=== PATIENT | female | born 1955 | race Caucasian/White ===

== ENCOUNTER 2024-07-25 10:17 | Emergency (ER) | payer MEDICARE, MEDICAID, SELFPAY ==
[2024-07-25 10:18] VITALS: BMI 42.9
[2024-07-25 11:04] VITALS: BP 163/75; PULSE 79; RESP 19; TEMP 36.8; O2SAT 97
--- NOTE | 2024-07-25 11:12 | XR_ITS ---
Examination: Ribs, right, with PA chest, 6 views Technique: Chest PA, RIBS AP, RPO, LPO, AP coned lower ribs 5 views Exam date and time: July 25, 2024 1121 hrs. Indications: Injury to the right chest 3 days ago with right rib pain Findings: Mild to moderate enlargement cardiac contour Large retrocardiac gastric hernia No pneumothorax Opacity right base, consider pneumonia, pulmonary contusion Acute fractures right third, fourth, fifth, sixth ribs anterolaterally Mild blunting of the right lateral costophrenic angle Impression: Acute fractures right third, fourth, fifth, sixth ribs without major offset Opacity right base most consistent with pulmonary contusion No pneumothorax Suspicious for small right hemothorax
[2024-07-25] MEDS: traMADol HCL 50 MG TABLET PO ×2 (11:30→15:54)
[2024-07-25 15:23] VITALS: BP 144/87; PULSE 85; RESP 17; TEMP 36.7; O2SAT 99
--- NOTE | 2024-07-25 15:34 | XR_ITS ---
Examination: CT chest, without intravenous contrast. Sagittal and coronal 2-D reconstructions. Exam date and time: July 25, 2024 1605 hrs. Indications: Right-sided abdominal pain beginning 3 days ago after injury to the right chest CTDI:vol (mGy) 26.1 DLP: (mGycm) 918 Technique: Multiple 3.0 mm axial sections of the chest to been obtained. Bone and lung density settings are obtained. Sagittal and coronal 2-D reconstructions have been obtained. Low dose protocols were performed. One or more of the following dose reduction techniques were used; automated exposure control, adjustment of the mA and/or KV according to patient size, use of iterative reconstruction technique. Findings: Thoracic aorta pulmonary arteries intact Mild calcification left anterior descending coronary artery Trace pericardial thickening Large retrocardiac gastric hernia No hemopericardium Probable parenchymal scarring in the right upper lobe No pneumothorax Extensive nodular parenchymal disease in the right middle lobe which may be residual from prior granulomatous disease The manubrium and the body the sternum are intact No thoracic vertebral body compression fracture Acute fractures right third fourth fifth sixth seventh ribs lateral anteriorly Hemorrhagic contusion right lateral thoracic wall, for instance axial image 58 although no organized hematoma No visualized liver or splenic laceration No free blood in the abdomen Abdominal aorta intact Absent gallbladder Impression: Flail chest with acute fractures right third through seventh ribs Thoracic aorta pulmonary arteries intact No pneumothorax or hemothorax Extensive nodular disease in the right mid and lower lung zone, favor sequelae of prior granulomatous disease, but clinical correlation advised
--- NOTE | 2024-07-25 15:40 | EDNOTE_ITS ---
Emergency Room Addendum Addendum Narrative: I was asked by ALYSIA Mariaelena to take a look at this patient who is got obvious right thoracic pain at least 3 rib fractures visualized on the right side in the area of pulmonary contusion and questionable small pneumo. Patient is having a lot of pain she wants to go home. She states she does not tolerate laying flat and she has a creatinine of 1.5 on the last 1 here so we elected to do a noncontrast CT and give her more pain medicine patient understands the risks and benefits and still wants to go home but Mariaelena is still talking whether hopefully get her to comply with the CT. She has an O2 sat of 90% is tolerating things quite well despite all this. Patient and nurse practitioner will discuss further workup at this time. CTA of the chest was done and the impression by the radiologist is below but 1 correction should be made this is not a flail chest as there is not a segment of unstable chest wall there is multiple rib fractures seen in a linear fashion making the patient at risk for hemopneumothorax and/or pulmonary contusions but fortunately the patient does not have evidence of those as the patient's O2 sat is normal she is taking adequate breaths although it is very painful but there is evidence of pre- existing granulomatous disease that is clinically insignificant at this time. Patient was given precautions after discussion with the [employer]ANT [employer]OTE[employer]ARD to return if shortness of breath fever getting worse in any way. She knows the splint her chest and using incentive spirometer and follow-up with her doctor in 2 to 3 days. Impression: Flail chest with acute fractures right third through seventh ribs Thoracic aorta pulmonary arteries intact No pneumothorax or hemothorax Extensive nodular disease in the right mid and lower lung zone, favor sequelae of prior granulomatous disease, but clinical correlation advised
[2024-07-25 15:52] LABS: Basophils # (Auto) 0.1 Thou/mm3 (0.0-0.2); Basophils % (Auto) 0 % (0-2.5); Eosinophils # (Auto) 0.3 Thou/mm3 (0.0-0.5); Eosinophils % (Auto) 3 % (0-10); Hemoglobin 9.7 g/dL (12.0-16.0); Immature Granulocytes % (Auto) 0 % (0-0); Immature Granulocytes Auto 0.04 Thou/mm3 (0.00-0.00); Lymphocytes # (Auto) 4.1 Thou/mm3 (1.0-4.8); Lymphocytes % (Auto) 31 % (10-50); Mean Corpuscular HGB Conc 30.3 g/dl (31.0-37.0); Mean Corpuscular Hemoglobin 24.7 pg (25.0-35.0); Mean Corpuscular Volume 82 fL (80-100); Monocytes # (Auto) 0.8 Thou/mm3 (0.0-0.8); Monocytes % (Auto) 6 % (0-12); Neutrophils % (Auto) 60 % (37-80); Nucleated Red Blood Cell % 0 /100 WBC (0); Platelet Count 486 Thou/mm3 (140-440); RDW Standard Deviation 44.7 fL (36.4-46.3); Red Blood Count 3.92 Miln/mm3 (4.00-5.20); White Blood Count 13.2 Thou/mm3 (3.6-11.0)
[2024-07-25 16:22] LABS: Alanine Aminotransferase 9 U/L (10-49); Albumin, Serum 4.5 gm/dL (3.4-4.8); Albumin/Globulin Ratio 1.4 (1.2-2.2); Alkaline Phosphatase 91 U/L (46-116); Anion Gap 9 (7-16); Aspartate Amino Transferase < 10 U/L (0-34); BUN/Creatinine Ratio 16 Ratio (12-20); Bilirubin,Total 0.6 mg/dL (0.3-1.2); Blood Urea Nitrogen 18 mg/dL (9-23); Calcium 9.3 mg/dL (8.3-10.6); Calcium (Corrected) 9.3 mg/dL (8.5-10.1); Carbon Dioxide 22.8 mMol/L (20.0-31.0); Chloride 110 mMol/L (98-107); Creatinine (Component) 1.1 mg/dL (0.6-1.3); Estimated Creatinine Clearance 62.1 mL/min (>60); Globulin 3.2 gm/dL (2.3-3.5); Glucose 90 mg/dL (74-106); Osmolality,Calculated 285 (275-295); Potassium 3.5 mMol/L (3.4-5.1); Sodium 142 mMol/L (136-145); Total Protein 7.7 gm/dL (5.7-8.2); eGFR 55 See Note
--- NOTE | 2024-08-01 08:31 | EDNOTE_ITS ---
ED Back Injury Pain RME/HPI General Chief Complaint: Fall Stated Complaint: RIGHT SIDE OF BODY PAIN S/P FALL IN SHOWER Time Seen by Provider: 07/25/24 10:54 Source: patient Arrival date/time: 07/25/24 10:17 This is a 68-year-old female who presented to the emergency department after a fall in her bathtub 4 days prior to ED arrival. Patient reports she was in her bathtub shower fixing her shower curtain when she accidentally slipped landing on her right side. States that for the last 3 days she has been having pain in her right ribs. More with deep inspiration. Patient denies chest pain, dyspnea. She denied any head injury no neck pain no abdominal pain. Mode of arrival: ambulatory Related Data Home Medications ?Medication ?Instructions ?Recorded ?Confirmed Levothyroxine * (SYNTHROID *) 100 mg PO QDAY ##30 03/01 01/11 furosemide 20 mg tablet ##30 03/17/14 gabapentin 400 mg capsule ##30 03/17/14 hydrochlorothiazide 25 mg tablet ##30 03/17/14 omeprazole 40 mg capsule,delayed ##30 03/17/14 release atorvastatin 10 mg tablet (Lipitor) 10 mg PO HS #0 tab s 12/05/16 Previous Rx's ?Medication ?Instructions ?Recorded levofloxacin 750 mg tablet 750 mg PO QDAY #5 tabs 01/16 (Levaquin) ibuprofen 600 mg tablet 600 mg PO Q8H PRN fever or p ain 07/25/24 #30 tabs tramadol 50 mg tablet 50 mg PO Q8H PRN pain #14 ta bs 07/25/24 Allergies Allergy/AdvReac Type Severity Reaction Status Date / Time codeine Allergy Mild Vomiting Verified 07/25/24 10:19 tetracycline Allergy Mild Vomiting Verified 07/25/24 10:19 Review of Systems Review of Systems Systems Reviewed: All systems reviewed, normal except as documented Narrative Review of Systems: Gen: No fever, no chills, no weight loss EYES: No discharge, no visual changes, no pain HEENT: No ear pain, no congestion, no sore throat PULM: No shortness of breath, no cough, no congestion CV: No chest pain, no dyspnea on exertion, no palpitations,rt rib pain GI: No nausea, no vomiting, no diarrhea, no pain, no constipation : No frequency, no urgency,? no dysuria Musc/skel: No joint pain, no back pain Skin: No rash? ED Exam Narrative Physical exam: General: 68 y old f Sittiing on exam table, no obvious distress. Answering questions appropriately HENT: normocephalic, atraumatic, EOMI, PERRLA, moist mucous membranes. No new midline neck tenderness no step-offs Chest: chest wall is nontender. Right lateral chest tenderness to palpation no obvious crepitus no bruising noted. Cardiac: regular rate and rhythm, normal S1 and S2, no murmurs, rubs, or gallops, capillary refill ?2 seconds Pulmonary: clear to auscultation bilaterally, no wheezing, crackles, or rhonchi Abdominal: active bowel sounds, soft, nontender, nondistended Neuro: A&OX3, CN II-XII intact, sensation grossly intact bilaterally in UE and LE. Skin: no rashes, no ecchymosis Ext: no lower extremity edema Course Quality Measures none Orders Category Date Time Status CT chest wo con Stat Exams 07/25/24 15:34 Completed XR ribs RT min 3V w CXR1V Stat Exams 07/25/24 11:12 Completed CBC Stat Lab 07/25/24 15:46 Completed CMP [Comprehensive Metabolic Panel] Stat Lab 07/25/24 15:46 Completed traMADol HCL [Ultram] Med 07/25/24 15:39 Discontinued 50 mg PO Q4HR PRN traMADol HCL [Ultram] Med 07/25/24 11:13 Discontinued 50 mg PO X1 ONE Vital Signs Vital signs: Vital Signs Temperature 98.3 F 07/25/24 11:04 Pulse Rate 79 07/25/24 11:04 Respiratory Rate 19 07/25/24 11:04 Blood Pressure 163/75 H 07/25/24 11:04 Pulse Oximetry (%) 97 07/25/24 11:04 Oxygen Delivery Method Room Air 07/25/24 11:04 Back Pain / Injury MDM Narrative MDM Narrative:: This is a 68-year-old female history of hypertension chronic renal failure presents to the emergency department with with complaints of right rib pain status post a fall in her bathtub 4 days ago. Reports the pain was unbearable prompting her ED visit. She reports she is unable to lay flat due to the pain however reported no shortness of breath. During my examination patient is awake and alert in no distress oxygenation remained from 97 to 99% no hypoxia shortness of breath or respiratory distress noted. Patient ambulated into the emergency department without desatting. I decided to do a chest x-ray with rib series which demonstrated multiple rib fractures and questionable pneumothorax or chest contusion. After speaking with the patient and with my attending physician we decided to do a CT contrast chest however the patient refused contrast study due to her renal function. Patient requesting to go home without the study however I convinced her to complete the study without contrast. I went ahead and medicated her with another tramadol dose she was comfortable no changes in condition while in the ED. The CT read possible flail chest multiple rib fractures however after reviewing the imaging with Dr. Duong, there is no flail chest. There is no pneumothorax no pulmonary contusion. The patient would like to go home. I did advise her all risk that include with her multiple rib fractures. I did educate her on splinting when coughing a spirometer kit was given to her to use.. Strictly advised her to follow-up with her PCP in 2 days strict ER precautions of any changes to return as soon as possible. Patient data External records reviewed:: [facility] previous records Clinical information provided by:: patient Social determinants that could affect healthcare access:: housing Patient has the following chronic illnesses:: HTN, CRF How is presenting disease/condition affected by chronic disease/condition?: caused by Evaluation data The following diagnostics were reviewed and interpreted by me:: lab results and radiology exam(s) Lab and/or radiology exams considered but not ordered:: yes CT with contrast however, pt hx of CRF, pt refused contrast study Interpretation Summary: Examination: CT chest, without intravenous contrast. Sagittal and coronal 2-D reconstructions. Exam date and time: July 25, 2024 1605 hrs. Indications: Right-sided abdominal pain beginning 3 days ago after injury to the right chest CTDI:vol (mGy) 26.1 DLP: (mGycm) 918 Technique: Multiple 3.0 mm axial sections of the chest to been obtained. Bone and lung density settings are obtained. Sagittal and coronal 2-D reconstructions have been obtained. Low dose protocols were performed. One or more of the following dose reduction techniques were used; automated exposure control, adjustment of the mA and/or KV according to patient size, use of iterative reconstruction technique. Findings: Thoracic aorta pulmonary arteries intact Mild calcification left anterior descending coronary artery Trace pericardial thickening Large retrocardiac gastric hernia No hemopericardium Probable parenchymal scarring in the right upper lobe No pneumothorax Extensive nodular parenchymal disease in the right middle lobe which may be residual from prior granulomatous disease The manubrium and the body the sternum are intact No thoracic vertebral body compression fracture Acute fractures right third fourth fifth sixth seventh ribs lateral anteriorly Hemorrhagic contusion right lateral thoracic wall, for instance axial image 58 although no organized hematoma No visualized liver or splenic laceration No free blood in the abdomen Abdominal aorta intact Absent gallbladder Impression: Flail chest with acute fractures right third through seventh ribs Thoracic aorta pulmonary arteries intact No pneumothorax or hemothorax Extensive nodular disease in the right mid and lower lung zone, favor sequelae of prior granulomatous disease, but clinical correlation advised Examination: Ribs, right, with PA chest, 6 views Technique: Chest PA, RIBS AP, RPO, LPO, AP coned lower ribs 5 views Exam date and time: July 25, 2024 1121 hrs. Indications: Injury to the right chest 3 days ago with right rib pain Findings: Mild to moderate enlargement cardiac contour Large retrocardiac gastric hernia No pneumothorax Opacity right base, consider pneumonia, pulmonary contusion Acute fractures right third, fourth, fifth, sixth ribs anterolaterally Mild blunting of the right lateral costophrenic angle Impression: Acute fractures right third, fourth, fifth, sixth ribs without major offset Opacity right base most consistent with pulmonary contusion No pneumothorax Suspicious for small right hemothorax Medications / Prescriptions Medications or Prescriptions considered but not ordered:: yes narcotic Medication administrations:: Medication Administration History Discontinued Medications Tramadol HCl (Tramadol Hcl 50 Mg Tablet) 50 mg PO X1 ONE Stop: 07/25/24 11:14 Last Admin: 07/25/24 11:30 Dose: 50 mg Documented By: [facility] Tramadol HCl (Tramadol Hcl 50 Mg Tablet) 50 mg PO Q4HR PRN PRN Reason: PAIN Stop: 07/30/24 15:38 Last Admin: 07/25/24 15:54 Dose: 50 mg Documented By: All medications administered and effective Consultations Consultation(s) initiated? (list below): Yes Consultation #1 (Physician, Specialty, Details): Dr. Owens attending Diagnosis Differential diagnosis back pain/injury: thoracic back pain and other (RIB contusion, rib fx, Pneunomoian pneumothorax) Most likely diagnosis given after review of the tests above:: Multiple rib fractures Admission Indicated Admission indicated?: not indicated Admission Request Was there a request for admission?: No Disposition Plan Disposition Plan: Discharge Discharge Attestation Discharge Attestation: The patient and all family members were given an opportunity to ask questions and understood the discharge instructions. Discharge instructions specifically effects, indications for sooner follow up or return to the emergency department, and the expected course of current diagnosis. Patient condition: Stable Discharge Plan Plan Patient Disposition: HOME (Self Care) Patient condition on transfer: Stable Prescriptions/Referrals Prescriptions/Med Rec: New tramadol 50 mg tablet 50 mg PO Q8H PRN (Reason: pain) Qty: 14 0RF ibuprofen 600 mg tablet 600 mg PO Q8H PRN (Reason: fever or pain) Qty: 30 0RF No Action gabapentin 400 MG capsule Qty: 30 omeprazole 40 MG capsule,delayed release(DR/EC) Qty: 30 hydrochlorothiazide 25 MG tablet Qty: 30 furosemide 20 MG tablet Qty: 30 Levothyroxine * (SYNTHROID *) 75 MCG tablet 100 mg PO QDAY Qty: 30 atorvastatin [Lipitor] 10 MG tablet 10 mg PO HS Qty: 0 levofloxacin [Levaquin] 750 mg tablet 750 mg PO QDAY Qty: 5 0RF Referrals: Donna Almonte FNP [Primary Care Provider] - In 1 week Problem List Clinical Impression: Multiple fractures of rib involving four or more ribs, Chest wall contusion Patient/Caregiver Discharge Instructions Discharge Activity: activity as tolerated Education Materials: ED Chest Wall Contusion, ED Rib Fracture Additional Instructions: As discussed you have multiple rib fractures on your right side. However your second imaging was negative for a pneumothorax. As discussed please splint whenever you deep breathe, use a spirometer as directed. -Pain medication was sent to the pharmacy. -Your CT shows some granuloma tissue/disease something you need to follow-up with your primary doctor. As discussed if you develop fever, shortness of breath, chest pain or any worsening symptoms please return to the emergency department immediately. Otherwise please make an appointment with your primary doctor in 24 to 48 hours Print Language: [place] Stand Alone Forms: Alisa Award Info., Patient Portal Info Letter PA/AGRICULTURE SALES ACCOUNT MANAGER Supervising Physician ABRIL/AGRICULTURE SALES ACCOUNT MANAGER Supervising Physician: Dr. Duong
== END 2024-07-25 16:13 | disposition home or self-care (01) ==
PROVIDERS: Nurse Practitioner Primary Care; Emergency Provider Emergency Medicine; PCP Nurse Practitioner Family
DX: S22.5XXA Flail chest, initial encounter for closed fracture (principal); J98.4 Other disorders of lung; W18.2XXA Fall in (into) shower or empty bathtub, initial encounter
CPT/HCPCS: 36415; 71101; 71250; 80053; 85025; 99284; A9270

== ENCOUNTER → 2025-04-07 | Outpatient (CLI) | payer MEDICARE, MEDICAID, SELFPAY ==
--- NOTE | 2025-04-07 11:00 | XR_ITS ---
Examination: Breast ultrasound, unilateral, left complete Date and time of exam: April 07, 2025, 1113 hours INDICATIONS: Skin lesion with redness itching and bleeding in the nipple region 6 months, biopsy for skin cancer 1 month ago negative Technique: Real-time kramer scale ultrasonographic imaging performed left breast including all 4 quadrants as well as nipple retroareolar and axillary region. Findings: 12:00 cyst 4 x 4 mm. 2:00 cyst 6 x 9 mm. 6:00 cyst 5 x 6 mm. No solid nodules IMPRESSION: BI-RADS Category 2: Benign findings
== END | disposition home or self-care (01) ==
LOC: CDIM 10:54
PROVIDERS: PCP Student in an Organized Health Care Education/Training Program; Referring Provider Student in an Organized Health Care Education/Training Program; Visit Provider Student in an Organized Health Care Education/Training Program
DX: N64.4 Mastodynia (principal)
CPT/HCPCS: 76641